=== PATIENT | male | born 1960 | race African-American/Black ===

== ENCOUNTER 2019-08-02 12:56 | Emergency (ER) | payer OTHER ==
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
[2019-08-02 13:20] VITALS: TEMP 98; BMI 30.7
[2019-08-02] MEDS ORDERED: DIPHTH,PERTUSS(ACELL),TET 0.5 ML DISP.SYRIN IM ONE ×2 (13:20→13:54)
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
[2019-08-02 15:53] VITALS: BP 170/100; PULSE 72
== END 2019-08-02 16:30 | disposition home or self-care (01) ==
LOC: JER 12:56
DX: S00.83XA Contusion of other part of head, initial encounter (principal); M25.521 Pain in right elbow; V43.62XA Car passenger injured in collision with other type car in traffic accident, initial encounter; Y92.414 Local residential or business street as the place of occurrence of the external cause; Y93.89 Activity, other specified; Y99.8 Other external cause status; I10 Essential (primary) hypertension; Z91.018 Allergy to other foods
CPT/HCPCS: 73070-TC-RT-FY; 73140-TC-RT-FY; 90715; 99282-25